=== PATIENT | female | born 1945 | race Caucasian/White ===

== ENCOUNTER 2022-03-30 08:16 | Day surgery (SDC) | payer MEDICARE, BC, SELFPAY ==
[2022-03-30] VITALS (21 sets, daily range): BP systolic 84–190; BP diastolic 38–80; PULSE 43–91; RESP 11–18; TEMP 35.6–36.6; O2SAT 91–99; BMI 24.5
[2022-03-30] MEDS: ACETAMINOPHEN 500 MG TABLET 1000 MG PO ×3 (08:38→20:36)
[2022-03-30] MEDS: OXYCODONE (CR) 10 MG TAB.ER.12H PO (08:38)
[2022-03-30] MEDS: SODIUM CHLORIDE 0.9 % (FLUSH) 10 ML SYRINGE IVF (09:15)
[2022-03-30] MEDS: LACTATED RINGERS 1000 ML 1,000 ML 100 ML IV (09:15)
[2022-03-30] MEDS: MIDAZOLAM HCL 1 MG/ML inj IVP (10:12)
[2022-03-30] MEDS: fentaNYL 100 MCG/2 ML inj IVP (10:12)
--- NOTE | 2022-03-30 10:16 | SUR.PREOP ---
TIME?OUT:?1010 PT/Clementine HILL RN/Tanner AWAN MDA?VERIFICATION?OF?SURGICAL?SITE,?PROCEDURE,?AND?CONSENT OBTAINED?PRIOR?TO?INVASIVE?PROCEDURE.
--- NOTE | 2022-03-30 10:18 | W.PM.NB ---
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 Images saved: Yes Medications given in 5ml increments after negative aspiration: Ropivicaine %: 0.5 mL: 20 Needle gauge: 22 Decadron (mg): 10 Precedex (mcg): 25 Patient tolerated procedure well: Yes Additional comments: Needle noted adjacent to nerve Block Charges Block Charge (with Pro Fee): Femoral Nerve Use of Ultrasound Machine for Block: Yes- US Guidance/pain block
--- NOTE | 2022-03-30 10:18 | W.PM.NB ---
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
[2022-03-30] MEDS: CEFAZOLIN 2 GM INJ IVP (10:50)
[2022-03-30] MEDS: TRANEXAMIC ACID 100 MG/ML INJ 1000 MG IV (10:55)
--- NOTE | 2022-03-30 12:04 | CRLHL7_ITS ---
For Patients: As a result of the Cures Act, medical imaging exams and procedure reports are released immediately into your electronic medical record. You may view this report before your referring provider. If you have questions, please contact your health care provider. INDICATION: Post operative left total knee arthroplasty TECHNIQUE: Knee radiograph 2 views left COMPARISON: None FINDINGS: Bone: No acute fractures or aggressive bone lesions are identified. Joint: The patient is status post a total knee arthroplasty with patellar resurfacing. No significant knee effusion is seen. Soft tissue: Anterior skin, subcutaneous gas and joint gas are present from recent surgery. No radiopaque foreign bodies are seen. IMPRESSION: 1. There is an unremarkable postoperative appearance of the knee arthroplasty. Dictated by: Juan Diego Aguilar MD @ 03/30/2022 13:20:59 (Electronically Signed)
--- NOTE | 2022-03-30 12:07 | PM.ORPRC ---
Procedure Note Date of procedure: 03/30/22 Procedure: SURGEON: Yared Jay MD CRIB ATTENDANT: ANGELA Goel PREOPERATIVE DIAGNOSIS: Left knee osteoarthritis POSTOPERATIVE DIAGNOSIS: Left knee osteoarthritis NAME OF OPERATION: Left total knee arthroplasty ANESTHESIA: Spinal ESTIMATED BLOOD LOSS: 0 mL COMPLICATIONS: None SPECIMENS: None DRAINS: None PREOPERATIVE ANTIBIOTICS: Ancef 2 grams IMPLANTS: 1. J&J Attune # 5 posterior stabilized femur 2. # 5 fixed-bearing tibia 3. # 5 posterior stabilized, 5 mm fixed-bearing polyethylene 4. 38 patella INDICATIONS: The patient is a 76-year-old female with a longstanding history of severe, unrelenting left knee pain secondary to end-stage (grade IV) left knee osteoarthritis. Despite appropriate nonoperative management, including activity modification, anti-inflammatories, [id number] pain medication, bracing, physical therapy, and injections they continue to have pain and disability. Operative intervention was offered. The risks, benefits and expected outcomes were discussed in detail. These included but were not limited to: Infection, bleeding, injury to blood vessel or nerve, venous thromboembolism. All questions were answered to their satisfaction. Use of an store administrative assistant was necessary throughout the case for patient positioning and safety, soft tissue retraction, and closure. PROCEDURE: Spinal anesthesia was administered. The patient was placed supine on the operating table. The store administrative assistant made sure the patient was positioned appropriately. The lower extremity was prepped and draped in the usual sterile fashion. The limb was exsanguinated with the Dixon bandage. The pneumatic tourniquet was inflated to 300 mmHg. A standard anterior incision was made with the knee in flexion. Subcutaneous dissection was sharply taken through fascial layer #1. Full-thickness medial and lateral flaps were elevated. The store administrative assistant retracted the soft tissues and protected them throughout the case. A standard medial parapatellar approach was made. The patella was everted. The infrapatellar fat pad was preserved. The menisci and cruciate ligaments were sharply d?brided. Marginal osteophytes were d?brided with the rongeur. The drill was used to penetrate the femoral canal. The canal was aspirated and irrigated with pulse lavage. The intramedullary femoral guide was placed for a 5-degree valgus cut, removing 10 mm off the distal femur. The saw was used to make the cut. Whitesides line and the trans epicondylar axis were marked. The femoral sizing guide was pinned onto the distal femur. Three degrees of external rotation nicely parallels the transepicondylar axis. Pins were placed for posterior referencing. The four-in-one cutting guide was pinned onto the distal femur. The anterior, posterior, and chamfer cuts were made. The store administrative assistant protected the collateral ligaments. The box cutting guide was pinned. The box cuts were made. The boxed trial was placed and was an excellent fit. Drill holes for the lugs were made. Attention was then turned to the proximal tibia. The extramedullary tibial guide was placed for a neutral varus/valgus cut with 5 degrees of posterior slope, removing 1 mm based off the medial tibial surface. The store administrative assistant protected the collateral ligaments and the neurovascular bundle. The saw was used to make the cut. Trial components were placed. Knee was tight in both flexion and extension. Therefore, we replaced the tibial cutting guide, advancing it 2 more mm distally and re-did the cut. Trial components were placed and now the knee was nicely balanced in both flexion and extension. Rotation of the tibial component was matched to the femur in full extension, matched to our tibial cutting pins, and marked with cautery. The trial components were removed. The tray was pinned by the store administrative assistant and the drill and the punch were used. The tray was removed. The punch was used again. We placed a bone plug in the femoral canal. Attention was then turned to the patella. [place] patellar thickness was 23.5 mm. The lobster claw resection guide was used with the 9.5 mm lisa. The saw was used to make the cut. Drill holes were made by the store administrative assistant. The trial was placed and was an excellent fit. Cancellous surfaces were irrigated with pulse lavage and thoroughly dried by the store administrative assistant. We cemented the tibial component, then the femoral component. A trial spacer was placed. The knee was brought into full extension. We then cemented the patellar component. Excessive cement was removed. The cement was allowed to harden. Any remaining excessive cement was removed with the osteotome. We impacted the 5 mm polyethylene onto the tibial tray. The knee was taken through a range of motion and was found to be nicely balanced in both flexion and extension. The patella tracks centrally. The store administrative assistant did a three minute dilute Betadine solution soak. The store administrative assistant irrigated the wound with 3 liters of normal saline via pulse lavage. The store administrative assistant reapproximated the extensor mechanism with #1 Vicryl in an interrupted [id number] fashion. The store administrative assistant then ran the extensor mechanism with a #1 PDO Stratafix. The store administrative assistant closed the subcutaneous tissues with a 3-0 Stratafix and the skin with a running 3-0 Stratafix in a subcuticular fashion. Glue was used to seal the skin. The store administrative assistant placed a dry dressing, ADITI stocking, and Polar Care. Sponge and needle counts were correct x2. The patient tolerated the procedure well. There were no apparent complications. They were carefully transferred to the hospital bed and taken to the postanesthesia care unit in satisfactory condition. PLAN: The patient will be mobilized with physical therapy. Aspirin will be used for DVT prophylaxis. They will be discharged to home once medically appropriate.
[2022-03-30] MEDS: LACTATED RINGERS 1000 ML 1,000 ML 35 ML IV ×2 (12:30→20:39)
--- NOTE | 2022-03-30 12:47 | W.ANESCHARGE ---
Anesthesia Charges Start Date/Time Anesthesia Start Date: 03/30/22 Anesthesia Start Time: 10:41 Stop Date/Time Anesthesia Stop Date: 03/30/22 Anesthesia Stop Time: 12:44 Summary Emergency: No
--- NOTE | 2022-03-30 13:00 | W.ANESCHARGE ---
Anesthesia Charges Start Date/Time Anesthesia Start Date: 03/30/22 Anesthesia Start Time: 10:41 Stop Date/Time Anesthesia Stop Date: 03/30/22 Anesthesia Stop Time: 12:44 Summary Emergency: No Extremes of Age: Over 68-CPT [address]7050
[2022-03-30 16:09] LABS: Sodium* 140 mmol/L (135-149)
[2022-03-30] MEDS: CEFAZOLIN 1 GM in 0.9 % SODIUM CHLORIDE Mini-bag 100 ML IVPB (17:04)
[2022-03-30] MEDS: SENNOSIDES 1 TAB TABLET 2 TAB PO (20:36)
[2022-03-30] MEDS: ASPIRIN 81 MG TABLET EC PO (20:36)
--- NOTE | 2022-03-30 22:59 | PC.NURSE ---
Shift [id number]- Patient is up in chair this afternoon into evening. She is up with walker, gait belt and assist of 1 and tolerates well. Cryocuff applied. Dressing is clean, dry and intact. She states she is not having any pain yet. She is tolerating diet without issue and is voiding.
[2022-03-30] MEDS: LEVOTHYROXINE 100 MCG TABLET PO (23:03)
--- NOTE | 2022-03-30 23:33 | P.IMCN_ITS ---
Date of Consult Patient: Fatuma Patient Consult date: 03/30/22 Requesting Physician: Orthopedics Primary Care Provider: Austyn Kay MD Consult Narrative Reason for consult: Assist with postoperative hypothyroidism and h/o elevated blood pressures Narrative: Sherrie Hanson is a 76 year old woman with longstanding symptomatic bilateral knee arthritis. She presents for elective left total knee arthroplasty today with intent of eventually having a right total knee arthroplasty. Left total knee arthroplasty is undertaken successfully without any obvious complications. Review of Systems Status of ROS: Reports: 6 or more systems reviewed and unremarkable except as noted in History and below Narrative: Denies any chest heaviness, pressure, tightness, or pain. Denies syncope or near-syncope. Denies orthostasis, lightheadedness. Denies shortness of breath at rest, dyspnea with exertion, paroxysmal nocturnal dyspnea orthopnea. Denies nausea or vomiting. Tolerating oral intake. Denies palpitations or chest fluttering. Enthusiastic about proceeding with physical and occupational therapy. Denies any bowel or bladder concerns or problems. Reviewed preoperative assessment per her primary care physician. No concerns of her primary care physician. [facility] Medical History (Updated 03/30/22 @ 23:41 by Brennon Castaneda MD) Chronic renal insufficiency Deviated septum Hypertension Hypothyroid Osteoarthritis of left knee Sensorineural hearing loss, bilateral Surgical History (Updated 03/30/22 @ 23:41 by Brennon Castaneda MD) History of meniscectomy of left knee History of meniscectomy of right knee Status post ORIF of fracture of ankle Family History Mother High blood pressure Pacemaker Father Alzheimer disease Brother Stroke Social History Smoking Status: Never smoker How often do you have a drink containing alcohol: monthly or less Alcohol type: hard liquor How many standard drinks containing alcohol do you have on a typical day: 1 or 2 How often do you have six or more drinks on one occasion: Never AUDIT-C Alcohol total score: 1 Non-prescribed substance use: denies use Caffeine: Yes (coffee, 1/2 cup 2x/week) Meds Home Medications and Allergies Home Medications Medication Instructions Recorded Confirmed Type levothyroxine 100 mcg capsule 100 mcg PO HS 03/29/22 03/30/22 History Allergies Allergy/AdvReac Type Severity Reaction Status Date / Time No Known Drug Allergies Allergy Verified 03/30/22 08:25 Exam Narrative: Exam Narrative: Awake. Alert. Oriented to self, place, time, situation. No acute distress. Hearing is well preserved. Vision is preserved. No focal motor neurologic deficits. Already able to transfer from bed to chair and back. Lungs are clear to auscultation. No wheezing, rhonchi, or rales. No CVA tenderness. Heart tones with regular rhythm, normal S1-S2. No murmur, gallop, or rub. Abdomen with active bowel sounds, soft, nontender. Moves all 4 extremities. No dependent edema. Const: Vital Signs, click to edit/add: Vital Signs - 24 hr 03/30/22 08:43 03/30/22 10:11 03/30/22 10:15 Temperature 97.9 F Pulse Rate 72 60 55 L Pulse Rate [Pulse Oximeter] Respiratory Rate 18 16 14 Blood Pressure 190/80 H 154/77 H 142/66 H Blood Pressure [Le ft Arm] Pulse Oximetry 95 99 99 Oxygen Delivery Me thod Room Air Nasal Cannula Nasal Cannula Oxygen Flow Rate 2 2 03/30/22 10:30 03/30/22 12:45 03/30/22 13:20 Temperature 97.4 F L 97.8 F Pulse Rate 52 L 63 53 L Pulse Rate [Pulse Oximeter] Respiratory Rate 14 12 12 Blood Pressure 102/47 L 85/42 L 93/46 L Blood Pressure [Le ft Arm] Pulse Oximetry 99 91 92 Oxygen Delivery Me thod Nasal Cannula Room Air Oxygen Flow Rate 2 03/30/22 13:30 03/30/22 13:45 03/30/22 14:00 Temperature 96.2 F L 96.1 F L 96.4 F L Pulse Rate 57 L Pulse Rate [Pulse Oximeter] 91 51 L Respiratory Rate 14 16 16 Blood Pressure Blood Pressure [Le ft Arm] 106/61 112/58 L 104/61 Pulse Oximetry 96 94 Oxygen Delivery Me thod Room Air Room Air Room Air Oxygen Flow Rate 0 0 0 03/30/22 14:15 03/30/22 14:30 03/30/22 15:00 Temperature 96.4 F L 96.4 F L 96.6 F L Pulse Rate Pulse Rate [Pulse Oximeter] 49 L 58 L 43 L Respiratory Rate 16 16 16 Blood Pressure Blood Pressure [Le ft Arm] 113/57 L 111/60 100/44 L Pulse Oximetry 95 98 98 Oxygen Delivery Me thod Room Air Room Air Room Air Oxygen Flow Rate 0 0 0 03/30/22 12:50 03/30/22 12:55 03/30/22 13:00 Temperature Pulse Rate 61 58 L 59 L Pulse Rate [Pulse Oximeter] Respiratory Rate 16 12 12 Blood Pressure 84/38 L 94/48 L 93/48 L Blood Pressure [Le ft Arm] Pulse Oximetry 93 93 91 Oxygen Delivery Me thod Room Air Room Air Room Air Oxygen Flow Rate 03/30/22 13:05 03/30/22 13:10 03/30/22 13:15 Temperature Pulse Rate 57 L 56 L 60 Pulse Rate [Pulse Oximeter] Respiratory Rate 11 L 12 13 Blood Pressure 95/49 L 94/50 L 100/50 L Blood Pressure [Le ft Arm] Pulse Oximetry 91 91 91 Oxygen Delivery Nh thod Room Air Room Air Room Air Oxygen Flow Rate 03/30/22 16:00 03/30/22 19:00 Temperature 97.2 F L 97.8 F Pulse Rate Pulse Rate [Pulse Oximeter] 50 L 64 Respiratory Rate 18 18 Blood Pressure Blood Pressure [Le ft Arm] 124/60 138/64 Pulse Oximetry 98 Oxygen Delivery Me thod Room Air Room Air Oxygen Flow Rate Documenting provider has reviewed patient's vital signs: yes Labs Labs: [facility] 03/30/22 15:27 Sodium 140 Assessment and Plan Assessment and plan (1) Osteoarthritis of left knee: Status: Acute (2) Status post left knee replacement: Status: Acute (3) Hypothyroid: Status: Acute Plan 1. Reviewed my impressions with the patient and her . Answered their questions are satisfaction. 2. Resume her levothyroxine. 3. Agree with postoperative venous thromboembolism prophylaxis efforts. 4. Agree with perioperative antibiotic prophylaxis. 5. Will follow the patient while orthopedic surgery has her in the hospital.
[2022-03-31] MEDS: CEFAZOLIN 1 GM in 0.9 % SODIUM CHLORIDE Mini-bag 100 ML IVPB ×2 (00:53→08:54)
[2022-03-31 04:20] VITALS: BP 116/62; PULSE 62; RESP 16; TEMP 36.8; O2SAT 96
--- NOTE | 2022-03-31 06:20 | PC.NURSE ---
Shift note: Surgical dressing is C/D/I, rates pain 0/10, education on pain management provided by RN. Pt ambulates with SBA belt and walker to the bathroom, voiding, passing gas. Tolerates PO food and fluids with no c/o nausea.
[2022-03-31] MEDS: OXYCODONE 5 MG TABLET PO (06:39)
[2022-03-31 07:00] VITALS: BP 130/57; PULSE 72; RESP 16; TEMP 36.7; O2SAT 98
[2022-03-31 07:11] LABS: Basophils Percent Auto 0.1 % (0.0-3.0); Hematocrit 33.3 % (33.0-51.0); Hemoglobin* 11.3 gm/dL (12.0-16.0); Immature Granulocytes Abs Auto 0.03 K/uL (0.00-0.30); Lymphocytes Percent Auto 9.2 % (20-44); Mean Corpuscular HGB Conc 34 gm/dL (32-36); Mean Corpuscular Hemoglobin 31 pg (26-34); Mean Corpuscular Volume 92 fL (80-100); Monocytes Percent Auto 5.1 % (0.0-11.0); Neutrophils Percent Auto 85.4 % (42.0-72.0); Platelet Count* 218 K/uL (140-440); RDW Coefficient of Variation % 12.7 % (11.5-15.5); Red Blood Count 3.62 m/uL (4.00-5.20); White Blood Count* 14.76 K/uL (4.50-11.00)
[2022-03-31 07:14] LABS: Slide Review Reflex No
[2022-03-31 07:21] LABS: Potassium* 4.3 mmol/L (3.6-5.1)
[2022-03-31 07:24] LABS: Blood Urea Nitrogen* 19 mg/dL (7-30); Creatinine* 0.8 mg/dL (0.5-1.5); Est. Creatinine Clearance* 38.35; Estimated Glomerular Filt Rate 75 ml/min
[2022-03-31 07:34] LABS: Prothrombin Time 14.7 Seconds
[2022-03-31] MEDS: SENNOSIDES 1 TAB TABLET 2 TAB PO (08:51)
[2022-03-31] MEDS: ASPIRIN 81 MG TABLET EC PO (08:52)
[2022-03-31] MEDS: ACETAMINOPHEN 500 MG TABLET 1000 MG PO (08:52)
--- NOTE | 2022-03-31 09:02 | P.ORPN_ITS ---
Subjective Subjective Time Seen by Provider: 07:00 Date Seen: 03/31/22 Principal diagnosis: Status post left total knee replaced Ortho Exam Narrative Exam Narrative: Alert and oriented x3. Patient is in no acute distress. Converses without labored breathing. Hearing is grossly intact. Ambulates with a walker. Examination of the knee shows dressing is in place. There is no erythema or drainage. No warmth. No ecchymosis. CMS is intact left lower extremity. Bilateral calves are soft and nontender. She is able to actively range the knee in her bed this morning. Const Vital Signs, click to edit/add: Vital Signs - 24 hr 03/30/22 10:11 03/30/22 10:15 03/30/22 10:30 Temperature Pulse Rate 60 55 L 52 L Pulse Rate [Pulse Oximeter] Respiratory Rate 16 14 14 Blood Pressure 154/77 H 142/66 H 102/47 L Blood Pressure [Left Arm] Pulse Oximetry 99 99 99 Oxygen Delivery Method Nasal Cannula Nasal Cannula Nasal Cannula Oxygen Flow Rate 2 2 2 03/30/22 12:45 03/30/22 13:20 03/30/22 13:30 Temperature 97.4 F L 97.8 F 96.2 F L Pulse Rate 63 53 L 57 L Pulse Rate [Pulse Oximeter] Respiratory Rate 12 12 14 Blood Pressure 85/42 L 93/46 L Blood Pressure [Left Arm] 106/61 Pulse Oximetry 91 92 Oxygen Delivery Method Room Air Room Air Oxygen Flow Rate 0 03/30/22 13:45 03/30/22 14:00 03/30/22 14:15 Temperature 96.1 F L 96.4 F L 96.4 F L Pulse Rate Pulse Rate [Pulse Oximeter] 91 51 L 49 L Respiratory Rate 16 16 16 Blood Pressure Blood Pressure [Left Arm] 112/58 L 104/61 113/57 L Pulse Oximetry 96 94 95 Oxygen Delivery Method Room Air Room Air Room Air Oxygen Flow Rate 0 0 0 03/30/22 14:30 03/30/22 15:00 03/30/22 12:50 Temperature 96.4 F L 96.6 F L Pulse Rate 61 Pulse Rate [Pulse Oximeter] 58 L 43 L Respiratory Rate 16 16 16 Blood Pressure 84/38 L Blood Pressure [Left Arm] 111/60 100/44 L Pulse Oximetry 98 98 93 Oxygen Delivery Method Room Air Room Air Room Air Oxygen Flow Rate 0 0 03/30/22 12:55 03/30/22 13:00 03/30/22 13:05 Temperature Pulse Rate 58 L 59 L 57 L Pulse Rate [Pulse Oximeter] Respiratory Rate 12 12 11 L Blood Pressure 94/48 L 93/48 L 95/49 L Blood Pressure [Left Arm] Pulse Oximetry 93 91 91 Oxygen Delivery Method Room Air Room Air Room Air Oxygen Flow Rate 03/30/22 13:10 03/30/22 13:15 03/30/22 16:00 Temperature 97.2 F L Pulse Rate 56 L 60 Pulse Rate [Pulse Oximeter] 50 L Respiratory Rate 12 13 18 Blood Pressure 94/50 L 100/50 L Blood Pressure [Left Arm] 124/60 Pulse Oximetry 91 91 Oxygen Delivery Method Room Air Room Air Room Air Oxygen Flow Rate 03/30/22 19:00 03/30/22 23:00 03/31/22 04:20 Temperature 97.8 F 98 F 98.2 F Pulse Rate Pulse Rate [Pulse Oximeter] 64 61 62 Respiratory Rate 18 16 16 Blood Pressure Blood Pressure [Left Arm] 138/64 122/56 L 116/62 Pulse Oximetry 98 95 96 Oxygen Delivery Method Room Air Room Air Room Air Oxygen Flow Rate Assessment and Plan Assessment and plan (1) Osteoarthritis of left knee: Status: Acute (2) Status post left knee replacement: Problem details: Date of surgery 03/30/2022 Status: Acute Assessment and Plan: Plan for discharge is today to home if they meet discharge criteria. DVT prophylaxis includes aspirin 81 mg twice daily x1 month, Terrance stockings x1 mo nth may remove for 1 hr per day, frequent ambulation Remove dressing in 1 week. Observe wound and phone Orthopedics with any questions or concerns Return to clinic in 1 week for a wound check Return to clinic in [address] Jay Minimize narcotic use. Wean off and discontinue soon as possible. Activities as tolerated. No strenuous activity. Outpatient physical therapy as scheduled. Ice and elevate the operative extremity. No restriction on ice. (3) Hypothyroid: Status: Acute
--- NOTE | 2022-03-31 10:06 | PM.DS1 ---
DS: Providers Provider Date Seen: 03/31/22 Primary care physician: Austyn Kay MD Consults: 03/30/22 13:54 Consult to Occupational Therapy [CONS] Routine Comment: Reason(s) for OT Consult:: ADLs Prior to Discharge Any Restrictions?:: See Comment Comment: See nursing activity order for any restrictions. Consult to Physical Therapy [CONS] Routine Comment: Ambulate in the espitia today. Reason(s) for PT Consult:: TKA TX Protocol POD#0 Any Restrictions?:: See Comment Comment: See nursing activity order for any restrictions. Consult to Physician [CONS] Routine Comment: Consulting Provider: Hospitalists Has provider been notified: No Consult to Glass Sander [CONS] Routine Comment: Reason for Consult:: Discharge Planning Needs Attending Physician on discharge: Yared Jay MD Date of Discharge: 03/31/22 DS: Diagnosis Discharge Diagnosis (1) Status post left knee replacement: Status: Acute Problem details: Date of surgery 03/30/2022 (2) Osteoarthritis of left knee: Status: Acute DS: Summary Hospital Course Hospital Course: 68-year-old female admitted to the hospital for left total knee arthroplasty. Procedures performed on the day of admission. There were no complications. Postoperatively she has done very well. Pain is well controlled. No nausea vomiting. She has done well with physical therapy. Status at Discharge Functional status at discharge: uses cane/walker Overall status at discharge: patient is back to baseline Time Spent with Patient Time attestation: Total time spent providing and/or coordinating discharge services: Exam Narrative: Exam Narrative: She is alert and appears in no distress. Mood and affect are bright. Breathing is unlabored. She has no lower extremity edema. Intact pedal pulses. Intact strength and motion in her ankles. Const: Vital Signs, click to edit/add: Vital Signs - 24 hr 03/30/22 10:11 03/30/22 10:15 03/30/22 10:30 Temperature Pulse Rate 60 55 L 52 L Pulse Rate [Pulse Oximeter] Respiratory Rate 16 14 14 Blood Pressure 154/77 H 142/66 H 102/47 L Blood Pressure [Le ft Arm] Pulse Oximetry 99 99 99 Oxygen Delivery Me thod Nasal Cannula Nasal Cannula Nasal Cannula Oxygen Flow Rate 2 2 2 03/30/22 12:45 03/30/22 13:20 03/30/22 13:30 Temperature 97.4 F L 97.8 F 96.2 F L Pulse Rate 63 53 L 57 L Pulse Rate [Pulse Oximeter] Respiratory Rate 12 12 14 Blood Pressure 85/42 L 93/46 L Blood Pressure [Le ft Arm] 106/61 Pulse Oximetry 91 92 Oxygen Delivery Me thod Room Air Room Air Oxygen Flow Rate 0 03/30/22 13:45 03/30/22 14:00 03/30/22 14:15 Temperature 96.1 F L 96.4 F L 96.4 F L Pulse Rate Pulse Rate [Pulse Oximeter] 91 51 L 49 L Respiratory Rate 16 16 16 Blood Pressure Blood Pressure [Le ft Arm] 112/58 L 104/61 113/57 L Pulse Oximetry 96 94 95 Oxygen Delivery Me thod Room Air Room Air Room Air Oxygen Flow Rate 0 0 0 03/30/22 14:30 03/30/22 15:00 03/30/22 12:50 Temperature 96.4 F L 96.6 F L Pulse Rate 61 Pulse Rate [Pulse Oximeter] 58 L 43 L Respiratory Rate 16 16 16 Blood Pressure 84/38 L Blood Pressure [Le ft Arm] 111/60 100/44 L Pulse Oximetry 98 98 93 Oxygen Delivery Me thod Room Air Room Air Room Air Oxygen Flow Rate 0 0 03/30/22 12:55 03/30/22 13:00 03/30/22 13:05 Temperature Pulse Rate 58 L 59 L 57 L Pulse Rate [Pulse Oximeter] Respiratory Rate 12 12 11 L Blood Pressure 94/48 L 93/48 L 95/49 L Blood Pressure [Le ft Arm] Pulse Oximetry 93 91 91 Oxygen Delivery Me thod Room Air Room Air Room Air Oxygen Flow Rate 03/30/22 13:10 03/30/22 13:15 03/30/22 16:00 Temperature 97.2 F L Pulse Rate 56 L 60 Pulse Rate [Pulse Oximeter] 50 L Respiratory Rate 12 13 18 Blood Pressure 94/50 L 100/50 L Blood Pressure [Le ft Arm] 124/60 Pulse Oximetry 91 91 Oxygen Delivery Me thod Room Air Room Air Room Air Oxygen Flow Rate 03/30/22 19:00 03/30/22 23:00 03/31/22 04:20 Temperature 97.8 F 98 F 98.2 F Pulse Rate Pulse Rate [Pulse Oximeter] 64 61 62 Respiratory Rate 18 16 16 Blood Pressure Blood Pressure [Le ft Arm] 138/64 122/56 L 116/62 Pulse Oximetry 98 95 96 Oxygen Delivery Me thod Room Air Room Air Room Air Oxygen Flow Rate 03/31/22 07:00 03/31/22 07:00 Temperature 98.0 F Pulse Rate Pulse Rate [Pulse Oximeter] 72 72 Respiratory Rate 16 16 Blood Pressure Blood Pressure [Le ft Arm] 130/57 L Pulse Oximetry 98 Oxygen Delivery Me thod Room Air Oxygen Flow Rate 0 Documenting provider has reviewed patient's vital signs: yes DS: Data Data Completed and Pending Labs on day of discharge: Labs from last 24 hours 03/31/22 03/31/22 03/31/22 06:17 06:17 06:17 WBC 14.76 H RBC 3.62 L Hgb 11.3 L Hct 33.3 MCV 92 MCH 31 MCHC 34 RDW Coeff of Lydia 12.7 Plt Count 218 Neut % (Auto) 85.4 H Lymph % (Auto) 9.2 L [place] % (Auto) 5.1 Eos % (Auto) 0.0 Baso % (Auto) 0.1 Neut # (Auto) 12.60 H Lymph # (Auto) 1.40 [place] # (Auto) 0.80 Eos # (Auto) 0.00 Baso # (Auto) 0.00 Abs Immat Gran (auto) 0.03 INR 1.10 Sodium Potassium 4.3 BUN 19 Creatinine 0.8 Estimated Creat Clear 38.35 Estimated GFR 75 03/30/22 15:27 WBC RBC Hgb Hct MCV MCH MCHC RDW Coeff of Lydia Plt Count Neut % (Auto) Lymph % (Auto) [place] % (Auto) Eos % (Auto) Baso % (Auto) Neut # (Auto) Lymph # (Auto) [place] # (Auto) Eos # (Auto) Baso # (Auto) Abs Immat Gran (auto) INR Sodium 140 Potassium BUN Creatinine Estimated Creat Clear Estimated GFR Discharge Plan Discharge Disposition: Home, Self-Care Discharging Surgeon: Yared Jay Follow-Up Appointment: 1 week Prescriptions: New acetaminophen 500 mg Tablet 500 - 1,000 mg PO Q6H MDD 4000Mg per day PRNQty: 100 0RF sennosides [Senna Lax] 8.6 mg Tablet 2 tab PO BID PRNQty: 100 0RF aspirin 81 mg Tablet,Delayed Release (Dr/Ec) 81 mg PO BID 30 Days Qty: 60 0RF oxycodone 5 mg Tablet 2.5 - 5 mg PO Q4-6H MDD 6 tabs per day PRN (Reason: Pain) Qty: 42 0RF Rx Instructions: minimize. Discontinue as soon as possible No Action levothyroxine 100 mcg capsule 100 mcg PO HS Activity Level: Activity as Tolerated and No strenuous activity Activity Detail: Keep dressing on for 1 week. Dressing is waterproof. May shower. Surgical glue covers the wound. Attend outpatient physical therapy if scheduled. Ice operative extremity without restriction. Wear compression stockings for 1 month post surgery. May remove for 1 hour per day. Do not drive while taking narcotic pain medication. Do not drink alcohol while taking narcotic pain medication. May drive when safe to do so and have full function of the extremities, this may take 6 weeks or more. Notify Orthopedics with any questions or concerns. ([phone]) Discharge Diet: Regular Patient Instructions: Acetaminophen (By mouth), Aspirin (By mouth), Oxycodone, Rapid Release (By mouth), Senna (By mouth), Knee Arthroscopy (DC) Follow-up: Tanisha Deleon PA-C [Physician Conveyor Installer] - 04/07/22 9:30 am (Schedule 6 week surgeon appointment at this time) Austyn Kay MD [Primary Care Provider] - Discharge Orders: Discharge Order (Routine); Ordered 03/31/22 Ordered By: Lam Fischer
--- NOTE | 2022-03-31 10:59 | PC.SOCIAL ---
Met with pt. to discuss discharge plans. Pt. is discharging home with spouse support and is moving well per therapy. Pt. has everything she needs on one level and does not feel she will need any additional resources at discharge. Pt. is aware she can contact social work case manager if she needs any additional resources.
--- NOTE | 2022-03-31 12:11 | PC.NURSE ---
?Pt. pleasant and cooperative. Surgical dressing is C/D/I, rates pain 0/10, Pt. denies any pain, education on pain management provided by RN. Pt ambulates with SBA belt and walker to the bathroom, voiding, passing gas. Tolerates PO food and fluids with no c/o nausea. Pt. discharged at 1145, IV removed, intact. Belongings list reviewed and signed.
== END 2022-03-31 11:45 | disposition home or self-care (01) ==
LOC: OR 08:24 → MEDSURG 03-31 07:40
PROVIDERS: PCP Family Medicine; Visit Provider Orthopaedic Surgery
PROC: (CPT 27447; principal; 2022-03-30 10:45)
DX: M17.12 Unilateral primary osteoarthritis, left knee (principal); I12.9 Hypertensive chronic kidney disease with stage 1 through stage 4 chronic kidney disease, or unspecified chronic kidney disease; N18.9 Chronic kidney disease, unspecified; E03.9 Hypothyroidism, unspecified
CPT/HCPCS: 27447; 01402; 36415; 64447; 64454; 73560; 76942; 82565; 84132; 84295; 84520; 85025; 85610; 97110; 97116; 97161; 97165; 97530; 97535; 99100; A9270; C1776; J0690; J1100; J2250; J2795; J3010; J7120